=== PATIENT | male | born 1975 | race Caucasian/White ===

== ENCOUNTER 2017-09-28 04:03 | Emergency (ER) | payer OTHER ==
[2017-09-28] MEDS ORDERED: predniSONE 20 MG Tab PO STA (04:59)
--- NOTE | 2017-09-28 05:02 | EDM.PDOC ---
ED HPI GENERAL MEDICAL PROBLEM - General Chief Complaint: ENT Problem Stated Complaint: EYES ARE INFECTION Time Seen by Provider: 09/28/17 04:11 Source of Information: Reports: Patient, RN Notes Reviewed History Limitations: Reports: Language Barrier (The patient's first language is Lao. He is able to speak Rwandan fairly well, but has difficulty understanding Rwandan. He has an mary on his phone that translates my Rwandan into written and audible Lao. 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 The patient states that he developed pain to tooth #7 this past 09/25/2017. He saw a dentist in [facility], where he was told that he has a dental infection. He was prescribed clindamycin that he has been taking every 6 hours, as prescribed. He is to see his own dentist, once he gets back home. He states that he developed swelling and redness under each eye on , . The swelling is somewhat pruritic. He has had a subjective fever. No prior similar symptoms. Tooth/Teeth Pain Score (Numeric/FACES): 7 - Related Data Allergies Allergy/AdvReac Type Severity Reaction Status Date / Time No Known Allergies Allergy Verified 09/28/17 04:16 Home Meds: Home Meds Clindamycin HCl 300 mg PO QID 09/28/17 [History] Past Medical History Endocrine/Metabolic History: Reports: Other (See Below) (Prediabetes) - Past Surgical History Male Surgical History: Reports: Other (See Below) (Right undescended testicle ) Social & Family History - Tobacco Use Smoking Status *Q: Current Every Day Smoker Years of Tobacco use: 21 Packs/Tins Daily: 1 - Alcohol Use Alcohol Use History: Yes Alcohol Use Frequency: Socially - Recreational Drug Use Recreational Drug Use: No - Living Situation & Occupation Living situation: Reports: Single, with Family 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) ED ROS GENERAL - Review of Systems Review Of Systems: See Below Constitutional: Reports: No Symptoms HEENT: Reports: No Symptoms Respiratory: Reports: No Symptoms Cardiovascular: Reports: No Symptoms Endocrine: Reports: No Symptoms GI/Abdominal: Reports: No Symptoms : Reports: No Symptoms Musculoskeletal: Reports: No Symptoms Skin: Reports: No Symptoms Neurological: Reports: No Symptoms Psychiatric: Reports: No Symptoms Hematologic/Lymphatic: Reports: No Symptoms Immunologic: Reports: No Symptoms ED EXAM, GENERAL - Physical Exam Exam: See Below Exam Limited By: No Limitations General Appearance: Alert, WD/WN, No Apparent Distress Eye Exam: Bilateral Eye: EOMI, Normal Inspection, PERRL, Other (Erythema and swelling inferior to both eyes) Ears: Normal External Exam, Normal Canal, Hearing Grossly Normal, Normal TMs Nose: Normal Inspection, Normal Mucosa, No Blood Throat/Mouth: Normal Inspection, Normal Lips, Normal Teeth, Normal Gums, Normal Oropharynx, Normal Voice, No Airway Compromise Head: Atraumatic, Normocephalic Neck: Normal Inspection, Supple, Non-Tender, Full Range of Motion Course - Vital Signs Last Recorded V/S: Last Vital Signs Temp 35.8 C 09/28/17 04:11 Pulse 102 H 09/28/17 04:11 Resp 18 09/28/17 04:11 BP 146/91 H 09/28/17 04:11 Pulse Ox 97 09/28/17 04:11 - Re-Assessments/Exams Free Text/Narrative Re-Assessment/Exam: 09/28/17 04:57 I am concerned that the swelling and erythema under each of the patient's eyes represents an early stage of drug-induced Sweet syndrome, an adverse reaction to clindamycin. I am recommending that he immediately discontinue the clindamycin, and I will start him on oral prednisone. For his dental infection I will prescribe oral penicillin, as he reports no allergies to any medicines. [facility] as the patient's intention is to start heading back to [employer]. If his symptoms resolve, he does not need to follow-up, however, if his symptoms fail to improve, or worsen, he will need to be seen again, either once he gets home in [place] [facility] [place], or on the way there. Departure - Departure Time of Disposition: 05:03 Disposition: Home, Self-Care 01 Condition: Good Clinical Impression: Sweet syndrome - Discharge Information Referrals: PCP,Not In Area [Primary Care Provider] - Forms: ED Department Discharge Additional Instructions: You were seen in the emergency room for swelling and redness under your eyes. You may be suffering from an early form of Sweet syndrome, an adverse reaction to clindamycin. We recommend that you stop taking the clindamycin immediately. You have been prescribed 10 tablets of prednisone 20 mg. Take 3 tablets now, then 1 tablet with breakfast each day, starting tomorrow, 09/29/2017. For your tooth infection, you have been prescribed 40 tablets of penicillin. Take one tablet every 6 hours. If your swelling and redness goes away, you do not need to follow-up, however, if it fails to get better, or worsens, you need to see a doctor, either when you get back home to [employer] [facility], or on your way.
== END 2017-09-28 05:34 | disposition home or self-care (01) ==
LOC: JD.ED 04:03
DX: L98.2 Febrile neutrophilic dermatosis [Sweet] (principal); F17.210 Nicotine dependence, cigarettes, uncomplicated
CPT/HCPCS: 99283